=== PATIENT | female | born 1995 | race Caucasian/White ===

== ENCOUNTER 2016-12-26 14:41 | Observation (INO) ==
[2016-12-26] MEDS ORDERED: BENADRYL IV ONE (15:27)
[2016-12-26] MEDS ORDERED: MORPHINE IV ONE (15:27)
[2016-12-26] MEDS ORDERED: NS 1,000 ML IV ONE ×2 (15:27→18:10)
[2016-12-26 16:31] LABS: INR 1.08; PROTIME 11.4 Seconds (9.2-11.7)
[2016-12-26 16:34] LABS: MANUAL DIFF NEEDED? NO
[2016-12-26 16:35] LABS: BASO% 0.3 % (0.0-0.8); EOS# 0.13 X1000 (0.0-0.7); HEMATOCRIT 34.9 % (37.0-47.0); HEMOGLOBIN 12.4 g/dL (12.0-16.0); IMM GRAN# 0.02 X1000 (0.0-0.04); IMM GRAN% 0.1 % (0.0-0.5); LYMPH# 1.24 X1000 (1.2-3.4); LYMPH% 9.3 % (20.5-51.1); MCH 30.2 PG (27-31); MCHC 35.5 g/dL (33-37); MCV 84.9 FL (81-99); MONO# 0.71 X1000 (0.11-0.59); MONO% 5.3 % (1.7-9.3); MPV 9.9 FL (7.4-10.4); PLT 265 X1000 (130-400); RBC 4.11 XMIL (4.2-5.4)
[2016-12-26 16:41] LABS: AGAP 12; ALBUMIN 3.9 g/dL (3.5-5.0); ALKALINE PHOSPHATASE 58 U/L (32-104); BUN 5 mg/dL (8-22); CALCIUM 8.9 mg/dL (8.8-10.2); CHLORIDE 102 mmol/L (98-107); COSMO 273; GOT 15 U/L (10-30); GPT 13 U/L (10-36); POTASSIUM 3.6 mmol/L (3.5-5.1); SODIUM 138 mmol/L (136-145); TCO2 24 mmol/L (25-35); TOTAL BILIRUBIN 0.43 mg/dL (0.20-1.00); TOTAL PROTEIN 6.6 g/dL (6.3-8.3)
[2016-12-26] MEDS ORDERED: NS 1,000 ML ONE (18:02)
--- NOTE | 2016-12-26 18:12 | PROVIDER DOCUMENTATION ---
This chart was entered by Reginald Longoria Scribe, acting as scribe for Fahad Aguilar MD. HPI-Female /OB/Breast <Raimundo Jhaveri - Last Filed: 01/04/17 06:08> - General Source: reports: patient - History of Present Illness-Female /OB Location of complaint: reports: suprapubic Radiation: reports: none Quality of Pain: reports: cramping Severity in ED: reports: moderate Onset/Duration: reports: abrupt, last night Timing: reports: still present Context/Activities at Onset: reports: none Related Symptoms: reports: vaginal bleeding, abdominal pain Modifying Factors: improves with: nothing Associated Symptoms: denies: constipation, fatigue, fever/chills, loss of appetite, nausea, vomiting Similar Symptoms Previously?: No Recently seen or treated by another doctor?: No - LMP/ History Menstrual Status: currently : 4 Para: 1 : 2 <Fahad Aguilar - Last Filed: 01/05/17 10:29> - General Chief Complaint: Female Stated Complaint: POSS MISCARRIAGE Time Seen by Provider: 12/26/16 15:26 Allergies/Adverse Reactions: Patient Allergies Allergy/AdvReac Type Severity Reaction Status Date / Time meperidine HCl * Allergy Severe ANAPHYLAXIS Verified 12/26/16 16:46 [From Demerol] Home Medications: Home Medication List Medication Instructions Recorded Confirmed Last Taken Type Hydrocodone/APAP 5 mg/325 mg 1 each PO Q6H PRN PRN #10 tablet 12/27/16 Unknown Rx [Atkinson-5] Methylergonovine [Methergine] 0.2 mg PO Q6H #2 tablet 12/27/16 Unknown Rx - History of Present Illness-Female /OB Nature of Presenting Problem: patient is a 21 y/o F that presents after having a gush of blood from vagina. Patient was seen at [facility] earlier for threatened . She reports bleeding was stopped at that time. She went home and had a gush of blood again. She is set up to see her CARDIOVASCULAR OPERATING ROOM NURSE Sunday, history of spontaneous abortions in past. History of Molar (Reginald Longoria) patient is a 21 y/o F that presents after having a gush of blood from vagina. Patient was seen at [facility] earlier for threatened . She reports bleeding was stopped at that time. She went home and had a gush of blood again. She is set up to see her CARDIOVASCULAR OPERATING ROOM NURSE Sunday, history of spontaneous abortions in past. History of Molar (Fahad Aguilar) Review of Systems - Adult - REVIEW OF SYSTEMS - ADULT Constitutional: reports: no symptoms reported Eyes: reports: no symptoms reported Ears, Nose, Mouth & Throat: reports: no symptoms reported Cardiovascular: reports: no symptoms reported Respiratory: reports: no symptoms reported Gastrointestinal: reports: abdominal pain. denies: diarrhea, nausea, vomiting Genitourinary: reports: other (vaginal bleeding) Musculoskeletal: reports: no symptoms reported Integumentary: reports: no symptoms reported Neurological: reports: no symptoms reported Psychiatric: reports: no symptoms reported Endocrine: reports: no symptoms reported Hematologic/Lymphatic: reports: no symptoms reported Allergic/Immunologic: reports: no symptoms reported All Other Systems: Reviewed and Negative <Fahad Aguilar - Last Filed: 01/05/17 10:29> Past History - Adult - PAST MEDICAL HISTORY-ADULT Review of Records: reports: Old Records Reviewed, Nursing Assessment Review, Medications Reviewed Major Childhood Illnesses: reports: denies history Cardiovascular: reports: denies history Respiratory: reports: asthma Gastrointestinal: reports: denies history Obstetrical/Gynecological: reports: denies history Genitourinary: reports: denies history Musculoskeletal: reports: denies history Neurological: reports: denies history Endocrine/Immune: reports: thyroid disorder Other Conditions: reports: denies history - PRIOR SURGERIES/PROCEDURES Surgical/Procedure History: reports: bowel surgery (at 5 years old) - IMMUNIZATION STATUS Childhood Immunizations: See Nurse Assessment Flu Vaccine: See Nurse Assessment - FAMILY HISTORY Family History: reviewed, not pertinent - SOCIAL HISTORY Smoking: non-smoker Living Situation: family <Fahad Aguilar - Last Filed: 01/05/17 10:29> Physical Exam-General - PHYSICAL EXAM-ADULT Initial Vital Signs Reviewed: Yes - CONSTITUTIONAL General Appearance: alert, mild distress, anxious - EYES Eyes: PERRL/EOMI, pink conjunctivae - HEAD, EARS, NOSE, MOUTH & THROAT HENMT: normocephalic/atraumatic, moist mucous membranes, normal ENT inspection - NECK Neck: full range of motion, normal inspection - RESPIRATORY Respiratory: lungs clear, normal breath sounds, no respiratory distress, no accessory muscle use - CARDIOVASCULAR Cardiovascular: regular rate, rhythm, no edema - GASTROINTESTINAL (ABDOMEN) Abdominal Exam: normal bowel sounds, soft, no organomegaly, no pulsatile mass, tenderness (low abdomen) - GENITOURINARY Female Genitalia/Pelvic Exam: blood, other (cervix closed and soft, bimanual exam) - MUSCULOSKELETAL Extremity: normal range of motion, normal inspection - SKIN Integumentary: normal color, warm/dry - NEUROLOGIC Neurologic: energy broker II-XII nml as tested, no motor/sensory deficits - PSYCHIATRIC Psych/Mental Status: oriented x 3, anxious, tearful <Fahad Aguilar - Last Filed: 01/05/17 10:29> Progress - PLAN OF CARE/RESULTS Result Diagrams: 12/27/16 12:39 12/26/16 16:08 - ULTRASOUND (By Radiology) 1 US Study: Pelvic Impression: Abnormal, See EMR Report (no IUP) - CONSULTS/PCP/HOSPITALIST Notification #1 *Consult/PCP/Hospitalist*: Dr Gilmore Time Discussed: 19:12 Reason/Comments: Spontaneous Consult Disposition: Admit <Raimundo Jhaveri - Last Filed: 01/04/17 06:08> - PLAN OF CARE/RESULTS Result Diagrams: 12/27/16 12:39 12/26/16 16:08 - CHANGE OF SHIFT REPORT (ED Provider) Report Given and Care Transferred to:: Time of Transfer: 18:00 Items Pending: Ultrasound Results <Fahad Aguilar - Last Filed: 01/05/17 10:29> - PLAN OF CARE/RESULTS Progress/Plan/Lab Results: Orders Category Date Time Status Admit - [facility] Routine [id number] 12/26/16 20:31 Ordered IV Insertion ORDERED Care 12/26/16 15:27 Completed US PELVIC NON-MAINTENANCE TECHNICIAN COMPLETE [US] Stat Exams 12/26/16 15:27 Completed CBC WITH DIFF [HEME] Stat Lab 12/26/16 14:27 Completed COMPREHENSIVE METABOLIC PANEL [CHEM] Stat Lab 12/26/16 16:08 Completed PROTIME WITH INR [COAG] Stat Lab 12/26/16 16:08 Completed QUANT TEST Stat Lab 12/26/16 16:08 Completed RHOGAM WORKUP [BBK] Stat Lab 12/26/16 16:08 Completed 0.9% Sodium Chloride Inj [Ns] 1,000 ml Med 12/26/16 18:02 Discontinued .ROUTE As Directed 0.9% Sodium Chloride Inj [Ns] 1,000 ml Med 12/26/16 15:27 Discontinued IV 999 mls/hr 0.9% Sodium Chloride Inj [Ns] 1,000 ml Med 12/26/16 18:10 Discontinued IV 999 mls/hr Acetaminophen with Codeine [Tylenol with Codeine #3] Med 12/26/16 19:10 Discontinued 1 each PO NOW ONE Diphenhydramine [Benadryl] Med 12/26/16 15:27 Discontinued 25 mg IV NOW ONE Morphine Med 12/26/16 15:27 Discontinued 4 mg IV NOW ONE Transfer/Admit Order [TRANSFER] Routine Transfer 12/26/16 20:19 Completed Nurse reported patient might have passed something, went to bedside and it was noted clots on the bed. (Reginald Longoria) Nurse reported patient might have passed something, went to bedside and it was noted clots on the bed. (Fahad Aguilar) Departure - Departure Date of Disposition Decision: 12/26/16 Time of Disposition Decision: 19:13 Certified Medical Emergency: Emergent - Critical Care Note This patient required my direct & personal management of CC.: No <Raimundo Jhaveri - Last Filed: 01/04/17 06:08> - Departure Date of Disposition Decision: 12/26/16 Time of Disposition Decision: 19:12 Certified Medical Emergency: Emergent - Critical Care Note This patient required my direct & personal management of CC.: No <Fahad Aguilar - Last Filed: 01/05/17 10:29> - Departure DIAGNOSIS: Spontaneous Disposition: ADMITTED INPATIENT 09 Condition: Good This chart was documented by the indicated scribe, (Reginald Longoria, Scribe) and accurately reflects the services I performed and decisions made by me, Fahad Aguilar MD, as attested by the provider's signature.
--- NOTE | 2016-12-26 18:48 | Diag Imaging Result Doc PS360 ---
EXAM: US PELVIC NON-RENTAL CLERK COMPLETE HISTORY: passing clots TECHNIQUE: Transvaginal imaging COMPARISON: 11/30/2016 FINDINGS: The uterus measures 10.5 x 5.6 x 4.9 cm. No yolk sac or pole identified. Complex cystic area in the cervix measuring 2.7 cm in maximum diameter. The endometrium is not thickened. Neither ovary is identified. No free fluid. No pelvic mass. IMPRESSION: Complex cystic area within the cervix or the cervical canal, but no yolk sac or pole. Electronically signed by Efraín Peguero 12/26/2016 6:46 PM
[2016-12-26] MEDS ORDERED: TYLENOL WITH CODEINE #3 PO ONE (19:10)
[2016-12-26] MEDS: LR 1,000 ML IV SCH (22:24)
[2016-12-26] MEDS ORDERED: METHERGINE PO ONE (22:33)
[2016-12-26] MEDS: NORCO-5 PO PRN (22:57)
[2016-12-27] MEDS: METHERGINE PO SCH ×3 (05:01→16:55)
[2016-12-27] MEDS: LR 1,000 ML IV SCH (05:01)
[2016-12-27] MEDS: NORCO-5 PO PRN ×2 (05:39→16:07)
[2016-12-27 06:37] LABS: HEMATOCRIT 24.3 % (37.0-47.0); HEMOGLOBIN 8.6 g/dL (12.0-16.0)
--- NOTE | 2016-12-27 08:43 | HISTORY AND PHYSICAL ---
HISTORY OF PRESENT ILLNESS: Patient is a 21-year-old, G 4, P 1-0-3-1 who presented to the emergency room with heavy vaginal bleeding. Patient with a previously documented intrauterine gestational sac. Repeat ultrasound on arrival showed a thin endometrium measuring approximately 2 mm, consistent with complete AB. Patient with large amount of bleeding so admitted overnight for monitoring. PAST MEDICAL HISTORY: None. PAST SURGICAL HISTORY: D and C. OB HISTORY: Vaginal delivery x1. Molar with D and C x1, now with SAB x2. CERTIFIED REAL ESTATE APPRAISER HISTORY: Noncontributory. PHYSICAL EXAMINATION: VITAL SIGNS: On arrival, patient was afebrile. Hypotensive with blood pressures 60/40s. Heart rate in the 90s. Otherwise vital signs stable. GENERAL: Patient in no acute distress. ABDOMEN: Soft, nontender. LUNGS: Respirations nonlabored. IMPRESSION AND PLAN: Patient admitted for pad counts. We will repeat hemoglobin and hematocrit in the morning. We will keep NPO for possible D and C. cc: MD Gilbert Hardin MD
[2016-12-27 11:34] VITALS: BP 112/49
[2016-12-27 12:44] LABS: HEMATOCRIT 24.5 % (37.0-47.0); HEMOGLOBIN 8.8 g/dL (12.0-16.0)
--- NOTE | 2017-01-02 07:32 | DISCHARGE SUMMARY ---
ADMISSION DATE: 12/26/2016 DISCHARGE DATE: 12/27/2016 HISTORY OF PRESENT ILLNESS /HOSPITAL COURSE: The patient is a 21-year-old, 4, para 1-0-3- 1, who presented to the emergency room with heavy vaginal bleeding, suspected miscarriage. Transvaginal ultrasound revealed complete ; however, the patient was noted to have heavy vaginal bleeding, so she was admitted for monitoring. On the morning of 12/27/2016, the patient was started on Methergine with subsequent decrease in vaginal bleeding. Initial hematocrit was 34 with repeat showing 24 x2. The patient denies any symptoms of anemia, so the decision was made to discharge home. DISCHARGE DISPOSITION: The patient was discharged home. PRIMARY PROCEDURE: Monitoring of vaginal bleeding and transvaginal ultrasound. FOLLOWUP: The patient is to follow up in the office in 2 weeks. cc: MD Gilbert Hardin MD
== END 2016-12-27 17:25 | disposition home or self-care (01) ==
LOC: P.WC 14:41 → ED 14:41
PROVIDERS: ADMIT Obstetrics & Gynecology; ATTEND Obstetrics & Gynecology